=== PATIENT | male | born 1980 | race Caucasian/White ===

== ENCOUNTER 2023-05-04 10:05 | Outpatient (CLI) | payer OTHER, SELFPAY ==
--- NOTE | 2023-05-04 10:29 | XRR_ITS ---
PROCEDURE INFORMATION: Exam: XR Left Shoulder Exam date and time: 05/04/2023 11:45 AM Age: 43 years old Clinical indication: Pain; Shoulder; Bilateral; Additional info: Bilateral shoulder pain TECHNIQUE: Imaging protocol: Radiologic exam of the left shoulder. Views: 2 or more views. COMPARISON: CR XR cervical spine 4-5V [id number] 05/04/2023 11:45 AM FINDINGS: Bones/joints: No fracture or other acute abnormality identified. Alignment appears anatomic. Soft tissues: No pathologic soft tissue calcifications are seen at the left shoulder joint. Incidental note of multiple granulomatous calcifications at the left hilum. XR/XR shoulder LT min 2V* [id number] IMPRESSION: No acute findings.
--- NOTE | 2023-05-04 10:29 | XR_ITS ---
WS: [id number] XR hip BI 3-4V wo/w pel [id number] REASON FOR EXAM: BILATERAL HIP PAIN FINDINGS: RIGHT HIP: No fracture or focal bone lesion. No significant narrowing of the hip joint space. Minimal subchondral sclerosis and cystic change in t he acetabulum. Presumed bilateral vasectomy clips. Otherwise, no metallic soft tissue foreign body. IMPRESSION: No significant abnormality. LEFT HIP: No fracture or focal bone lesion. No significant narrowing of the hip joint space. Minimal subchondral sclerosis and cystic change in t he acetabulum. Presumed bilateral vasectomy clips. Otherwise, no metallic soft tissue foreign body. IMPRESSION: No significant abnormality.
--- NOTE | 2023-05-04 10:29 | XR_ITS ---
WS: [id number] XR shoulder RT min 2V* [id number] REASON FOR EXAM: BILATERAL SHOULDER PAIN FINDINGS: No fracture or focal bone lesion. Mild narrowing of the acromioclavicular joint space with mild subchondral sclerosis and marginal oste ophytosis. Glenohumeral joint is intact and relatively well preserved. Minimal sclerosis in the greater biceps tuberosity. No radiopaque soft tissue foreign body. 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 Minimal rotator cuff tendon arthropathy.
--- NOTE | 2023-05-04 10:29 | XR_ITS ---
WS: [email or web address] XR sinus <3V [id number] REASON FOR EXAM: SINUSITIS FINDINGS: Paranasal sinuses are clear and well aerated. No significant mucosal thickening or soft tissue mass. No facial bone abnormality. No metallic soft tissue foreign body. IMPRESSION: No significant abnormality.
--- NOTE | 2023-05-04 10:32 | XRR_ITS ---
PROCEDURE INFORMATION: Exam: XR Left Foot Exam date and time: 05/04/2023 11:45 AM Age: 43 years old Clinical indication: Pain; Foot; Bilateral; Additional info: Bilateral foot pain TECHNIQUE: Imaging protocol: Radiologic exam of the left foot. Views: 1 or 2 views. COMPARISON: CR XR ankle LT min 3V* [id number] 05/04/2023 11:45 AM FINDINGS: Bones/joints: Normal. No acute osseous, joint, or soft tissue abnormality. No fracture or dislocation. Soft tissues: Normal. XR/XR foot LT 2V [id number] IMPRESSION: No acute findings.
--- NOTE | 2023-05-04 10:32 | XRR_ITS ---
PROCEDURE INFORMATION: Exam: XR Lumbosacral Spine Exam date and time: 05/04/2023 11:45 AM Age: 43 years old Clinical indication: Low back pain TECHNIQUE: Imaging protocol: Radiologic exam of the lumbosacral spine. Views: 4 or 5 views. COMPARISON: CR XR hip BI 3-4V wo/w pel [id number] 05/04/2023 11:45 AM FINDINGS: Bones/joints: In the absence of AP thoracic spine film to accurately number from T1, a transitional vertebra at the lumbosacral junction is designated partially lumbarized S1, as there are 5 standard lumbar vertebral segments above that level. Based on this numbering, degenerative disc space narrowing is present at L4-L5 and L5-S1. Flexion and extension views demonstrate no obvious dynamic instability. No acute osseous abnormality identified. Soft tissues: Unremarkable. XR/XR lumbar spine min 4V [id number] IMPRESSION: 1. No acute abnormality or evidence of dynamic instability. 2. Chronic degenerative disc space narrowing at lower lumbar levels as reported above. 3. There are 5 standard appearing lumbar vertebral segments and a transitional vertebra at the lumbosacral junction, designated a partially lumbarized S1 for numbering purposes in this report. Accuracy of this numbering cannot be confirmed on the basis of currently available exams.
--- NOTE | 2023-05-04 10:32 | XRR_ITS ---
PROCEDURE INFORMATION: Exam: XR Left Hand Exam date and time: 05/04/2023 11:45 AM Age: 43 years old Clinical indication: Left hand pain; Bilateral; Additional info: Bilateral hand pain TECHNIQUE: Imaging protocol: Radiologic exam of the left hand. Views: 3 or more views. COMPARISON: CR XR elbow LT 2V [id number] 05/04/2023 11:45 AM FINDINGS: Bones/joints: No fracture or other acute osseous abnormality of the left hand is identified. No evidence of erosive arthropathy involving the joints of the left hand. Mild chronic degenerative changes are noted at the carpal joints of the wrist. Soft tissues: No soft tissue gas or radiodense foreign body. XR/XR hand LT min 3V* [id number] IMPRESSION: No acute abnormality detected.
--- NOTE | 2023-05-04 10:32 | XR_ITS ---
WS: [email or web address] XR cervical spine 4-5V [id number] REASON FOR EXAM: CERVICAL SPINE PAIN FINDINGS: Normal lordosis of the cervical spine. No focal vertebral body abnormality. Intervertebral disc spaces are intact and relatively well preserved. No significant vertebral body movement with flexion or extension. IMPRESSION: No significant abnormality.
--- NOTE | 2023-05-04 10:32 | XRR_ITS ---
PROCEDURE INFORMATION: Exam: XR Right Hand Exam date and time: 05/04/2023 11:45 AM Age: 43 years old Clinical indication: Pain; Hand; Bilateral; Additional info: Bilateral hand pain TECHNIQUE: Imaging protocol: Radiologic exam of the right hand. Views: 3 or more views. COMPARISON: CR XR elbow RT 2V [id number] 05/04/2023 11:45 AM FINDINGS: Bones/joints: Normal. Healed fracture of the 5th metacarpal. No acute osseous, joint, or soft tissue abnormality. Soft tissues: Normal. XR/XR hand RT min 3V* [id number] IMPRESSION: No acute findings.
--- NOTE | 2023-05-04 10:32 | XRR_ITS ---
PROCEDURE INFORMATION: Exam: XR Right Calcaneus Exam date and time: 05/04/2023 11:45 AM Age: 43 years old Clinical indication: Pain; Heel; Bilateral; Additional info: Bilateral achilles pain TECHNIQUE: Imaging protocol: Radiologic exam of the right calcaneus. Views: 2 or more views. COMPARISON: CR XR ankle RT min 3V* [id number] 05/04/2023 11:45 AM FINDINGS: Bones/joints: Normal. No fracture or dislocation. Minimal calcaneal spurring. Soft tissues: Normal. XR/XR calcaneus RT min 2V [id number] IMPRESSION: No acute findings.
--- NOTE | 2023-05-04 10:32 | XR_ITS ---
WS: [email or web address] XR knee LT 3V* [id number] REASON FOR EXAM: BILATERAL KNEE PAIN FINDINGS: No fracture or focal bone lesion. The medial knee joint space is intact and relatively well preserved with minimal subarticular scleros is. There is mild narrowing of the lateral knee joint space with mild subchondral sclerosis. Patellofemoral joint space is intact and relatively well preserved. Mild subchondral sclerosis of the medial and lateral patellar facets with minimal osteophytic spurring. IMPRESSION: Minimal/mild changes of osteoarthritis of the left knee as above.
--- NOTE | 2023-05-04 10:32 | XRR_ITS ---
PROCEDURE INFORMATION: Exam: XR Left Calcaneus Exam date and time: 05/04/2023 11:45 AM Age: 43 years old Clinical indication: Pain; Heel; Bilateral; Additional info: Bilateral achilles pain TECHNIQUE: Imaging protocol: Radiologic exam of the left calcaneus. Views: 2 or more views. COMPARISON: CR XR ankle LT min 3V* [id number] 05/04/2023 11:45 AM FINDINGS: Bones/joints: Normal. Minimal calcaneal spurring. No fracture or dislocation. Soft tissues: Normal. XR/XR calcaneus LT min 2V [id number] IMPRESSION: No acute findings.
--- NOTE | 2023-05-04 10:32 | XRR_ITS ---
PROCEDURE INFORMATION: Exam: XR Right Knee Exam date and time: 05/04/2023 11:45 AM Age: 43 years old Clinical indication: Pain; Knee; Bilateral; Additional info: Bilateral knee pain TECHNIQUE: Imaging protocol: Radiologic exam of the right knee. Views: 3 views. COMPARISON: CR XR ankle RT min 3V* [id number] 05/04/2023 11:45 AM FINDINGS: Bones/joints: No linear fracture or dislocation. No acute osseous, joint, or soft tissue abnormality. A tiny, comma shaped bone fragment which projects adjacent to the lateral tibial spine may be the result an avulsion injury. Soft tissues: Normal. XR/XR knee RT 3V* [id number] IMPRESSION: Possible tiny avulsion.
--- NOTE | 2023-05-04 10:32 | XR_ITS ---
WS: [email or web address] XR foot RT 2V [id number] REASON FOR EXAM: BILATERAL FOOT PAIN FINDINGS: No fracture or periosteal reaction in the forefoot. Joint spaces of the forefoot are intact and relatively well preserved. Joint spaces in the midfoot are intact. No focal bone abnormality in the midfoot. The subtalar joint is intact and well preserved. No focal bone abnormality in the hindfoot. IMPRESSION: No significant abnormality.
--- NOTE | 2023-05-04 10:32 | XR_ITS ---
WS: [email or web address] XR ankle RT min 3V* [id number] REASON FOR EXAM: BILATERAL ANKLE PAIN FINDINGS: No fracture or other focal bone lesion. The spaces of the right ankle joint are intact and relatively well preserved. No metallic soft tissue foreign body. IMPRESSION: No significant abnormality.
--- NOTE | 2023-05-04 10:32 | XRR_ITS ---
PROCEDURE INFORMATION: Exam: XR Left Ankle Exam date and time: 05/04/2023 11:45 AM Age: 43 years old Clinical indication: Pain; Ankle; Bilateral; Additional info: Bilateral ankle pain TECHNIQUE: Imaging protocol: Radiologic exam of the left ankle. Views: 3 or more views. COMPARISON: CR XR calcaneus LT min 2V [id number] 05/04/2023 11:45 AM FINDINGS: Bones/joints: Normal. No acute osseous, joint, or soft tissue abnormality. Soft tissues: Normal. XR/XR ankle LT min 3V* [id number] IMPRESSION: No acute findings.
--- NOTE | 2023-05-04 10:32 | XRR_ITS ---
PROCEDURE INFORMATION: Exam: XR Right Elbow Exam date and time: 05/04/2023 11:45 AM Age: 43 years old Clinical indication: Right elbow Pain; Elbow; Bilateral; Additional info: Bilateral elbow pain TECHNIQUE: Imaging protocol: Radiologic exam of the right elbow. Views: 1 or 2 views. COMPARISON: CR XR hand RT min 3V* [id number] 05/04/2023 11:45 AM FINDINGS: Bones/joints: No fracture or other acute osseous abnormality identified. No significant degenerative changes are seen. No evidence of joint effusion. Soft tissues: No soft tissue gas or radiodense foreign body. XR/XR elbow RT 2V [id number] IMPRESSION: No acute abnormality detected.
--- NOTE | 2023-05-04 10:32 | XRR_ITS ---
PROCEDURE INFORMATION: Exam: XR Left Elbow Exam date and time: 05/04/2023 11:45 AM Age: 43 years old Clinical indication: Pain; Elbow; Bilateral; Additional info: Bilateral elbow pain TECHNIQUE: Imaging protocol: Radiologic exam of the left elbow. Views: 1 or 2 views. COMPARISON: CR XR hand LT min 3V* [id number] 05/04/2023 11:45 AM FINDINGS: Bones/joints: Normal. No fracture or dislocation. Soft tissues: Normal. XR/XR elbow LT 2V [id number] IMPRESSION: No acute findings.
== END 2023-05-04 10:06 | disposition home or self-care (01) ==
PROVIDERS: Visit Provider Nurse Practitioner Family
DX: M25.512 Pain in left shoulder (principal); M19.011 Primary osteoarthritis, right shoulder; M17.12 Unilateral primary osteoarthritis, left knee; M25.561 Pain in right knee; M25.552 Pain in left hip; M25.551 Pain in right hip; J32.9 Chronic sinusitis, unspecified; M54.2 Cervicalgia; M51.36 Other intervertebral disc degeneration, lumbar region; M25.522 Pain in left elbow; M25.521 Pain in right elbow; M79.642 Pain in left hand; M79.641 Pain in right hand; M25.572 Pain in left ankle and joints of left foot; M25.571 Pain in right ankle and joints of right foot; M79.672 Pain in left foot; M79.671 Pain in right foot
CPT/HCPCS: 70210; 72050; 72110; 73030; 73070; 73130; 73522; 73562; 73610; 73620; 73650